=== PATIENT | female | born 1995 | race American Indian/Alaskan Native ===

== ENCOUNTER 2021-08-30 13:27 | Outpatient (CLI) | payer MEDICAID ==
[2021-08-30 16:10] VITALS: BP 126/78
== END 2021-08-30 16:57 | disposition home or self-care (01) ==
LOC: TRG 13:27 → APU 13:28 → TRG 16:57
PROVIDERS: ATTEND Obstetrics & Gynecology
DX: O26.93 Pregnancy related conditions, unspecified, third trimester (principal); Z3A.37 37 weeks gestation of pregnancy
CPT/HCPCS: 59025

== ENCOUNTER 2021-09-04 20:34 | Inpatient (IN) | payer MEDICAID ==
[2021-09-05] MEDS ORDERED: METHYLERGONOVINE MALEATE 0.2 MG/ML VIAL IM PRN (01:46)
[2021-09-05] MEDS ORDERED: fentaNYL 100 MCG/2 ML INJ IV PRN (01:46)
[2021-09-05] MEDS ORDERED: ePHEDrine SULFATE 50 MG/1 ML INJ IV PRN (01:46)
[2021-09-05] MEDS ORDERED: CARBOPROST TROMETHAMINE 250 MCG/1 ML INJ IM PRN (01:46)
[2021-09-05] MEDS ORDERED: TERBUTALINE 1 MG/1 ML INJ SUB-Q PRN (01:46)
--- NOTE | 2021-09-05 01:52 | History and Physical Report ---
History of Present Illness Date of examination: 09/12/21 Date of admission: 09/04/21 20:34 Chief complaint: Induction of labor secondary to growth restriction History of present illness: The patient is a 26-year-old at 38-1/7 weeks gestation who presents to labor and delivery for induction of labor secondary to growth restriction. There is no vaginal bleeding. There is no leaking of fluid. There is good movement. Estimated weight is less than the 1st percentile. Umbilical artery Dopplers are normal. She is followed by maternal- medicine. Induction of labor is recommended at this gestational age to decrease the risk o f stillbirth. The risks, terms, and benefits were explained the patient. She voiced understanding of this. She wished to proceed. Past History Past Medical History: asthma, other (Anxiety, bipolar disorder, rheumatoid arthritis, Crohn's disease, irritable bowel syndrome, alpha thalassemia carrier) Past Surgical History: no surgical history [employer] History: fibroids Family/Genetic History: cancer (Breast cancer, colon cancer, ovarian cancer) Social history: no significant social history - Obstetrical History Expected Date of Delivery: 09/18/21 Actual Gestation: 38 Week(s) 1 Day(s) : 1 Para: 0 Medications and Allergies Allergies Allergy/AdvReac Type Severity Reaction Status Date / Time ketorolac [From Toradol] Allergy Itching Verified 08/30/21 15:38 tramadol Allergy Rash Verified 08/30/21 15:37 NSAIDS (Non-Steroidal AdvReac Bleeding Verified 08/30/21 15:40 Anti-Inflamma Home Medications Medication Instructions Recorded Confirmed Last Taken Type Sertraline [Zoloft] 50 mg PO QDAY 09/05/21 09/05/21 Unknown History Active Meds: Active Medications Acetaminophen (Acetaminophen 325 Mg Tab) 650 mg PO Q4H PRN PRN Reason: Pain, Mild (1-3) Butorphanol Tartrate (Butorphanol 2 Mg/1 Ml Inj) 2 mg IV Q2H PRN PRN Reason: Pain, Moderate(4-6) LABOR PAIN Carboprost Tromethamine (Carboprost Tromethamine 250 Mcg/1 Ml Inj) 250 mcg IM ONCE PRN PRN Reason: Uterine Bleeding Ephedrine Sulfate (Ephedrine Sulfate 50 Mg/1 Ml Inj) 10 mg IV Q2M PRN PRN Reason: Hypotension Fentanyl (Fentanyl 100 Mcg/2 Ml Inj) 100 mcg IV Q2H PRN PRN Reason: Pain,Severe (7-10) LABOR PAIN Lactated Ringer's (Lactated Ringers) 1,000 mls @ 125 mls/hr IV DIRECT NITA Oxytocin/Sodium Chloride (Pitocin/Ns 30 Unit/500ml) 30 units in 500 mls @ 40 mls/hr IV TITR NITA; Protocol Methylergonovine Maleate (Methylergonovine Maleate 0.2 Mg/Ml Vial) 0.2 mg IM ONCE PRN PRN Reason: Uterine Bleeding Misoprostol (Misoprostol 25 Mcg Tab) 25 mcg PO Q4H NITA Stop: 09/05/21 14:01 Terbutaline Sulfate (Terbutaline 1 Mg/1 Ml Inj) 0.25 mg SUB-Q ONCE PRN PRN Reason: Hyperstimulation/Hypertonicity Review of Systems All systems: negative - Vital Signs Vital signs: Vital Signs Pulse BP Pulse Ox 83 121/73 100 09/04/21 22:05 09/04/21 22:05 09/04/21 22:05 Temp Pulse Resp BP Pulse Ox 74 121/73 98 09/05/21 01:50 09/04/21 22:05 09/05/21 01:50 - Physical Exam Breasts: Positive: normal Cardiovascular: Regular rate Lungs: Positive: Normal air movement Abdomen: Positive: normal appearance, normal bowel sounds Genitourinary (Female): Positive: normal external genitalia, normal perenium Vulva: both: normal Vagina: Positive: normal moisture Uterus: Positive: enlarged Adnexa: both: normal Anus/Rectum: Positive: normal perianal skin Extremities: Positive: normal Deep Tendon Reflex Grade: Normal +2 - Obstetrical FHR: category 1 Uterine Contraction Monitor Mode: External Cervical Dilatation: 0 Cervical Effacement Percentage: 0 station: -3 Uterine Contraction Pattern: Irregular Results Result Diagrams: 09/04/21 23:00 All other labs normal. Ultrasound: report reviewed (BPP= 09/30), image reviewed (OB US Limited= SLIUP. Vertex. EFW is 2181 g (<1st %-ile). JAVIER is 7.6 cm.), other (OB Umbilical Artery Dopplers= Normal) Assessment and Plan - Patient Problems (1) 38 weeks gestation of Current Visit: Yes Status: Acute Plan to address problem: care is up-to-date at [facility]. She is GBS negative. (2) growth restriction Current Visit: Yes Status: Acute Plan to address problem: The estimated weight is less than the 1st percentile. The patient is followed by maternal- medicine. Medically indicated induction of labor is indicated at this gestational age to decrease the risk of stillbirth. (3) Encounter for induction of labor Current Visit: Yes Status: Acute Plan to address problem: Ripen cervix with Cytotec 25 mcg orally every 4 hours. Consider addition of Cook's catheter for further cervical ripening. (4) Asthma affecting in third trimester Current Visit: Yes Status: Acute Plan to address problem: Continue albuterol. No Hemabate. (5) Anxiety during in third trimester, antepartum Current Visit: Yes Status: Acute Plan to address problem: Continue home dose of Zoloft 100 mg. (6) Bipolar disease during in third trimester Current Visit: Yes Status: Acute Plan to address problem: Continue home dose of BuSpar 30 mg daily. (7) Maternal Crohn's disease affecting in third trimester Current Visit: Yes Status: Acute Plan to address problem: Stable. (8) Irritable bowel syndrome affecting in third trimester Current Visit: Yes Status: Acute Plan to address problem: Stable. (9) Maternal rheumatoid arthritis complicating Current Visit: Yes Status: Acute Plan to address problem: Stable. (10) Uterine fibroids affecting in third trimester Current Visit: Yes Status: Acute Plan to address problem: The patient cervix is deviated secondary to the fibroid uterus.
[2021-09-05] MEDS ORDERED: OXYTOCIN DRIP 30 UNITS/500 ML BAG IV SCH (02:00)
[2021-09-05] MEDS: miSOPROStol 25 MCG TAB PO SCH ×4 (02:08→13:10)
[2021-09-05] MEDS: LACTATED RINGERS 1,000 ML IV SCH (02:09)
[2021-09-05 02:14] LABS: Hematocrit 33.1 % (30.3-42.9); Hemoglobin 10.8 gm/dl (10.1-14.3); Mean Corpuscular HGB Conc 33 % (30-34); Mean Corpuscular Volume 93 fl (79-97); Platelet Count 230 K/mm3 (140-440); Red Blood Count 3.57 M/mm3 (3.65-5.03); Red Cell Distribution Width 14.2 % (13.2-15.2)
[2021-09-05] MEDS: ACETAMINOPHEN 325 MG TAB PO PRN ×2 (02:30→08:27)
[2021-09-05] MEDS: ONDANSETRON 4 MG/2 ML INJ IV PRN ×3 (02:33→23:35)
--- NOTE | 2021-09-05 05:13 | Ultrasound Report ---
ULTRASOUND OBSTETRIC LIMITED ULTRASOUND BIOPHYSICAL PROFILE INDICATION / CLINICAL INFORMATION: growth restriction. Clinical Gestational Age (GA) in weeks, days: 38, 1 TECHNIQUE: Transabdominal. COMPARISON: None available. FINDINGS: BREATHING MOVEMENT = 2 GROSS BODY MOVEMENT = 2 TONE = 2 QUALITATIVE AMNIOTIC FLUID VOLUME = 2 TOTAL BIOPHYSICAL SCORE = 8/8 HEART RATE (beats per minute): 141 AMNIOTIC FLUID INDEX (cm) = 7.6 (normal = 7-24 cm) PRESENTATION: Cephalic. ADDITIONAL FINDINGS: Estimated age is 33 weeks 4 days by ultrasound. Estimated weight is 2181 g. IMPRESSION: 1. Biophysical Score = 8/8 2. Ultrasound dates lag clinical dates. 3. Estimated weight is 2181 g. 4. Amniotic fluid index lower limits of normal. Signer Name: You Mayes MD Signed: 09/05/2021 5:08 AM Workstation Name: [id number]
--- NOTE | 2021-09-05 05:23 | Ultrasound Report ---
UMBILICAL CORD DOPPLER: - S/D Ratio Average: 2.11 - Waveform: Persistent - Resistive Index (RI) Average: 0.52 - Waveform: Persistent - Pulsitivity Index (PI) Average: Not measured. IMPRESSION: No Doppler evidence of IUGR. Signer Name: You Mayes MD Signed: 09/05/2021 5:19 AM Workstation Name: [id number]
[2021-09-05] MEDS ORDERED: ALBUTEROL 8.5 GM MDI INHALATION IH PRN (08:10)
[2021-09-05] MEDS ORDERED: ALBUTEROL 2.5 MG/3 ML NEBU IH PRN (09:00)
[2021-09-05] MEDS: busPIRone 5 MG TAB PO SCH ×2 (09:50→23:05)
[2021-09-05] MEDS ORDERED: SERTRALINE 100 MG TAB PO SCH (10:00)
[2021-09-05] MEDS ORDERED: busPIRone 10 MG TAB PO SCH (10:00)
--- NOTE | 2021-09-05 12:51 | Event Note ---
Date: 09/05/21
[2021-09-05] MEDS ORDERED: DINOPROSTONE 10 MG VAG SUPP VG SCH (16:10)
[2021-09-05] MEDS: BUTORPHANOL 2 MG/1 ML INJ IV PRN ×3 (16:43→23:27)
--- NOTE | 2021-09-05 19:03 | Event Note ---
Date: 09/05/21 S: Feeling contractions, had pain medication 2 hrs ago O: VE 80/-2, no resting tone between contractions, FHT's 180 with moderate variability- decreased to 150-160's after terbutaline A: Tachysystole at 37.3 weeks P: Terbutaline 0.25 sq x one dose Continue to monitor
[2021-09-06] MEDS ORDERED: diphenhydrAMINE 50 MG/ML VIAL IV STA (01:06)
[2021-09-06] MEDS ORDERED: NALOXONE 0.4 MG/1 ML INJ IV PRN (01:41)
[2021-09-06] MEDS ORDERED: ONDANSETRON 4 MG/2 ML INJ IV PRN (01:41)
[2021-09-06] MEDS ORDERED: PROMETHAZINE 25 MG RECT SUPP PR PRN (01:41)
[2021-09-06] MEDS ORDERED: PROMETHAZINE 25 MG TAB PO PRN (01:41)
--- NOTE | 2021-09-06 01:41 | Anesthesia Consultation ---
Anesthesia Consult and Med Hx Date of service: 09/06/21 - Airway Anesthetic Teeth Evaluation: Good ROM Head & Neck: Adequate Mental/Hyoid Distance: Adequate Mallampati Class: Class II Intubation Access Assessment: Good - Pulmonary Exam CTA: Yes - Cardiac Exam Cardiac Exam: RRR - Pre-Operative Health Status ASA Pre-Surgery Classification: ASA2 Proposed Anesthetic Plan: Epidural - Pulmonary Hx Asthma: Yes (ALBUTEROL INH PRN) COPD: No Hx Pneumonia: No - Cardiovascular System Hx Hypertension: No - Central Nervous System Hx Seizures: No Hx Psychiatric Problems: Yes (ANXIETY; PANIC DISORDER, DEPRESSION, BIPOLAR, ON ZOLOFT & BUSPAR) - Endocrine Hx Renal Disease: No Hx End Stage Renal Disease: No Hx Hypothyroidism: No Hx Hyperthyroidism: No - Hematic Hx Anemia: Yes Hx Sickle Cell Disease: No - Other Systems Hx Alcohol Use: Yes (BEFORE )
--- NOTE | 2021-09-06 01:43 | Progress Note ---
Labor Epidural - Labor Epidural Start Time: 13:22 Stop Time: 13:33 Performed by:: NAA MONTEZ Procedure: Patient is requesting epidural for labor and pain. H&P, labs were reviewed. Patient IDed, all questions and concerns were answered, and consent was signed. Timeout was performed at bedside. Patient in sitting position. Sterile prep and drape was performed. 3ml of 1% lidocaine skin wheal at L[3]- L [4]. 17- gauge Tuohy epidural needle was advanced to loss of resistance with air technique cm. Negative CSF negative blood. Epidural catheter advanced to [15] centimeters. [negative] Aspiration [negative] test dose. Sterile dressing applied. Patient tolerated procedure.
[2021-09-06] MEDS: LACTATED RINGERS 1,000 ML IV SCH (01:51)
[2021-09-06] MEDS ORDERED: fentaNYL-BUPIV 2 MCG/ML-0.125% 200 MCG/100 ML BAG EPIDURAL SCH (02:00)
[2021-09-06] MEDS ORDERED: miSOPROStol 25 MCG TAB PO SCH (02:00)
[2021-09-06] MEDS ORDERED: LIDOCAINE (2%) 20 MG/1 ML VIAL 20 ML MDV INFILTRATI ONE (07:44)
--- NOTE | 2021-09-06 08:44 | Procedure Note ---
OB Delivery Note - Delivery Date of Delivery: 09/06/21 Surgeon: DELTA LI Estimated blood loss: 300cc - Vaginal Delivery presentation: vertex Delivery position: OA Delivery induction: misoprostol Delivery monitor: external FHT, external uterine Route of delivery: Delivery placenta: manual Delivery cord: 3 umbilical vessels Episiotomy: none Delivery laceration: other (vaginal floor laceration and left labial laceration repaired with 2-0 and 3-0 vicryl) Delivery comments: of a viable female 4# 13 oz on 09/06 @ 0742 over vaginal floor laceration. Baby cried initially and put on mothers abdomen, Cord cut at 1 min. NICU nurses were managing the baby and then took her to the warmer. Manual removal of placenta. Lacerations repaired with 2-0 and 3-0 vicryl under local anesthesia. QBL 300cc. Apgars were 3-4-8. - Infant A at 1 minute: 3 at 5 minutes: 4 (10 min 8) Infant Gender: Female
[2021-09-06] MEDS ORDERED: WITCH HAZEL/ GLYCERIN PAD TP PRN (08:45)
[2021-09-06] MEDS ORDERED: MAGNESIUM HYDROXIDE (MOM) ORAL LIQD UDC PO PRN (08:45)
[2021-09-06] MEDS ORDERED: LANOLIN/ZINC/DIMETHICONE (LANSINOH) 7 GM TP PRN (08:45)
[2021-09-06] MEDS ORDERED: IBUPROFEN 800 MG TAB PO SCH (09:00)
[2021-09-06] MEDS ORDERED: HYDROcodone/ACETAMINOPHEN 10-325MG TAB PO STA (10:40)
[2021-09-06] MEDS: HYDROcodone/ACETAMINOPHEN 5-325 MG TAB PO PRN ×2 (10:45→16:28)
[2021-09-07] MEDS: DOCUSATE SODIUM 100 MG CAP PO SCH ×3 (01:41→22:29)
[2021-09-07] MEDS: HYDROcodone/ACETAMINOPHEN 5-325 MG TAB PO PRN ×2 (01:41→07:55)
[2021-09-07 08:20] LABS: Hematocrit 28.6 % (30.3-42.9); Hemoglobin 9.5 gm/dl (10.1-14.3); Mean Corpuscular HGB Conc 33 % (30-34); Mean Corpuscular Volume 91 fl (79-97); Platelet Count 195 K/mm3 (140-440); Red Blood Count 3.13 M/mm3 (3.65-5.03); Red Cell Distribution Width 14.5 % (13.2-15.2)
[2021-09-07] MEDS: PRENATAL VIT27-FE FUMARATE-FOLIC ACID VIT TAB PO SCH (09:49)
--- NOTE | 2021-09-07 12:14 | Consultation ---
History of Present Illness - Reason for Consult Consult date: 09/07/21 Reason for consult: Proctor score - History of Present Psychiatric Illness The patient was seen today. She was admitted for childbirth. She is calm and cooperative. She says it's been a hard . The patient says she suffers from anxiety, depression, bipolar, panic disorder and explosive disorder. She says she hasn't seen a psychiatrist since covid hit because the office closed down. She says she takes zoloft 100, and buspar 30. She says she gets theses meds from her primary doctor. The patient says they appear to be working, she says because things get worse if I don't take them. The patient denies SI/HI. She also denies hallucinations of any kind at present. The patient says "I've had both of those in the past but not in recent months." She says she lives with the child's father and they have plenty of social support with both of their families. She denies illicit drug use outside of occasional THC. She denies alcohol or nicotine. PAST PSYCHIATRIC HISTORY: Diagnoses: Bipolar Disorder, anxiety, depression, panic disorder, explosive disorder Suicide attempts or Self-harm behavior: Yes Prior psychiatric hospitalizations: Denies Substance Abuse history: Denies Previous psychiatric medications tried: zoloft, buspar Outpatient treatment: Yes PAST MEDICAL HISTORY: None reported Family Psychiatric History: None reported or documented SOCIAL HISTORY Marital Status: Single Living Arrangements: with child's father Employment Status: unemployed Access to guns/weapons: Denies Education: 12th grade History of Abuse:Denies Legal History: Denies REVIEW OF SYSTEMS Constitutional: Negative for weight loss ENT: Negative for stridor Respiratory: Negative for cough or hemoptysis All other systems reviewed and are negative MENTAL STATUS EXAMINATION General Appearance and Behavior: Age appropriate, wearing appropriate clothes, cooperative, polite with questioning, good eye contact Cooperation: cooperative Psychomotor Behavior: Psychomotor normal Mood: overwhelmed Affect and affective range: congruent with stated affect Thought Process: Goal directed Thought Content: None Speech: Normal volume, Regular rate and rhythm Suicidal Ideation: Denies Homicidal Ideation: Denies Hallucination: Denies Delusions: None elicited Impulse Control: Limited Insight and Judgment: Limited Memory: Intact Attention: attentive Orientation: Alert and oriented Diagnoses: Bipolar Disorder Treatment Plan Increase home Zoloft 150mg po daily Buspar 15mg po BID Sitter: Defer to primary Medical: per primary Disposition: Do not recommend acute psychiatric inpatient treatment Will sign off. Thanks Case staffed with Dr. Goss Medications and Allergies Allergies Allergy/AdvReac Type Severity Reaction Status Date / Time ketorolac [From Toradol] Allergy Itching Verified 08/30/21 15:38 tramadol Allergy Rash Verified 08/30/21 15:37 NSAIDS (Non-Steroidal AdvReac Bleeding Verified 08/30/21 15:40 Anti-Inflamma Home Medications Medication Instructions Recorded Confirmed Last Taken Type Sertraline [Zoloft] 50 mg PO QDAY 09/05/21 09/05/21 Unknown History Active Meds: Active Medications Acetaminophen (Acetaminophen 325 Mg Tab) 650 mg PO Q4H PRN PRN Reason: Pain MILD(1-3)/Fever >100.5/ESPINO Hydrocodone Bitart/Acetaminophen (Hydrocodone/Acetaminophen 5-325 Mg Tab) 2 each PO Q6H PRN PRN Reason: Pain, Moderate (4-6) Last Admin: 09/07/21 07:55 Dose: 2 each Benzocaine/Menthol (Benzocaine/Menthol 20/0.5% Top [place] 56 Gm) 1 spray TP PRN PRN PRN Reason: Episiotomy Pain Docusate Sodium (Docusate Sodium 100 Mg Cap) 100 mg PO BID [facility] Last Admin: 09/07/21 09:49 Dose: 100 mg Magnesium Hydroxide (Magnesium Hydroxide (Mom) Oral Liqd Udc) 30 ml PO HS PRN PRN Reason: Constipation Multi-Ingredient Ointment (Lanolin/Zinc/Dimethicone (Lansinoh) 7 Gm) 1 applic TP PRN PRN PRN Reason: Sore Nipples Multivitamins/Iron/Calcium ( [id number] Fumarate-Folic Acid Vit Tab) 1 each PO QDAY [facility] Last Admin: 09/07/21 09:49 Dose: 1 each Sodium Chloride (Sodium Chloride 0.9% 10 Ml Flush Syringe) 10 ml IV PRN NR Stop: 09/07/21 23:59 Witch Mary/Glycerin (Witch Mary/ Glycerin Pad) 1 each TP PRN PRN PRN Reason: Hemorrhoid/cleansing/soothing Mental Status Exam - Vital signs Last Vital Signs Temp 98.1 F 09/07/21 07:27 Pulse 58 L 09/07/21 07:27 Resp 16 09/07/21 07:27 BP 118/77 09/07/21 07:27 Pulse Ox 98 09/07/21 08:00 Results Result Diagrams: 09/07/21 08:07 Abnormal lab results 09/07/21 Range/Units 08:07 WBC 16.2 H (4.5-11.0) K/mm3 RBC 3.13 L (3.65-5.03) M/mm3 Hgb 9.5 L (10.1-14.3) gm/dl Hct 28.6 L (30.3-42.9) % All other labs normal.
--- NOTE | 2021-09-07 12:37 | Progress Note ---
Assessment and Plan A: PPD #1 , BABY BOY 1ST DEGREE LACERATION MENTAL HEALTH MANAGEMENT P:CONTINUE PP CARE PER UNIT PROTOCOL PSYCHIATRIC EVALUATION PLAN D/C IN 24 HRS IF STABLE Subjective - Subjective Date of service: 09/07/21 Principal diagnosis: IUGR Patient reports: appetite normal, voiding normally, pain well controlled (JUST MUSCLE DISCOMFORT), ambulating normally Echo: in NICU Objective - Vital Signs Latest vital signs: Vital Signs Temp Pulse Resp BP Pulse Ox Pulse Ox 09/07/21 08:00 98 09/07/21 07:27 98.1 F 58 L 16 118/77 98 09/07/21 02:59 98.2 F 77 18 96/55 98 09/06/21 21:15 98.4 F 68 18 127/77 98 09/06/21 21:00 100 09/06/21 18:29 100 09/06/21 16:39 100 09/06/21 16:30 98.0 F 72 16 144/92 98 09/06/21 14:00 100 Intake and Output 09/06/21 09/07/21 09/07/21 23:59 07:59 15:59 Intake Total 720 240 360 Output Total 1700 Balance -980 240 360 Intake: Oral 480 360 Intake, Free Water 240 240 Output: Urine 1700 Void 1700 Other: Total, Intake Amount 480 120 Total, Output Amount 800 # Voids Void 2 1 - Exam Breasts: Present: normal Cardiovascular: Present: Regular rate Lungs: Present: Clear to auscultation Abdomen: Present: normal appearance, soft Uterus: Present: firm, fundal height below umbilicus Extremities: Present: normal - Labs Labs: Abnormal lab results 09/07/21 Range/Units 08:07 WBC 16.2 H (4.5-11.0) K/mm3 RBC 3.13 L (3.65-5.03) M/mm3 Hgb 9.5 L (10.1-14.3) gm/dl Hct 28.6 L (30.3-42.9) %
--- NOTE | 2021-09-07 12:50 | Discharge Summary ---
Providers - Providers Date of Admission: 09/06/21 08:45 Date of discharge: 09/08/21 Attending physician: DEQUAN CAMPOS 09/07/21 06:20 Consult to Mental Health [CONS] Routine Reason For Exam: Orondo Score of 15 Primary care physician: DEQUAN CAMPOS Hospitalization Reason for admission: induction of labor Delivery: Episiotomy: none Laceration: 1st degree Other procedures: none complications: none Discharge diagnosis: IUP at term delivered baby: female Condition at discharge: Good Disposition: 01 HOME / SELF CARE / HOMELESS Plan - Discharge Medications Prescriptions: Cyclobenzaprine [Flexeril 10 MG TAB] 5 mg PO Q8H PRN #20 tablet PRN Reason: Muscle Spasm Sertraline [Zoloft] 150 mg PO QDAY #45 - Provider Discharge Summary Activity: no sex for 6 weeks, no heavy lifting 4 weeks, no strenuous exercise Diet: routine Instructions: routine Additional instructions: [] Smoking cessation referral if applicable(refer to patient education folder for contact #) [] Refer to [facility]'s [facility] Booklet Call your doctor immediately for: * Fever > 100.5 * Heavy vaginal bleeding ( >1 pad per hour) * Severe persistent headache * Shortness of breath * Reddened, hot, painful area to leg or breast * Drainage or odor from incision. * Keep incision clean and dry at all times and follow doctor's instructions regarding bathing/showering - Follow up plan Follow up: DEQUAN CAMPOS MD [Primary Care Provider] - 6 Weeks
[2021-09-07] MEDS ORDERED: SERTRALINE 50 MG TAB PO SCH (13:00)
[2021-09-07] MEDS ORDERED: busPIRone 10 MG TAB PO SCH (13:00)
[2021-09-07] MEDS: busPIRone 10 MG TAB PO SCH ×2 (15:30→23:35)
[2021-09-07] MEDS: SERTRALINE 50 MG TAB PO SCH (15:30)
[2021-09-07] MEDS: busPIRone 5 MG TAB PO SCH ×2 (15:30→23:35)
[2021-09-07] MEDS: CYCLOBENZAPRINE 10 MG TAB PO PRN ×2 (15:30→23:59)
[2021-09-07] MEDS: SERTRALINE 100 MG TAB PO SCH (15:30)
[2021-09-07] MEDS: BENZOCAINE/MENTHOL 20/0.5% TOP SPRAY 56 GM TP PRN (15:31)
[2021-09-07] MEDS: FERROUS SULFATE 325 MG TAB PO SCH (22:29)
[2021-09-07] MEDS: ACETAMINOPHEN 325 MG TAB PO PRN (23:58)
[2021-09-08 00:38] VITALS: BP 133/88
[2021-09-08] MEDS: HYDROcodone/ACETAMINOPHEN 5-325 MG TAB PO PRN (03:46)
[2021-09-08] MEDS: ACETAMINOPHEN 325 MG TAB PO PRN (05:27)
[2021-09-08] MEDS: PRENATAL VIT27-FE FUMARATE-FOLIC ACID VIT TAB PO SCH (13:00)
[2021-09-08] MEDS: busPIRone 5 MG TAB PO SCH (13:01)
[2021-09-08] MEDS: busPIRone 10 MG TAB PO SCH (13:01)
[2021-09-08] MEDS: DOCUSATE SODIUM 100 MG CAP PO SCH (13:03)
[2021-09-08] MEDS: FERROUS SULFATE 325 MG TAB PO SCH (13:03)
[2021-09-08] MEDS: SERTRALINE 100 MG TAB PO SCH (13:04)
[2021-09-08] MEDS: BENZOCAINE/MENTHOL 20/0.5% TOP SPRAY 56 GM TP PRN (13:05)
[2021-09-08] MEDS: SERTRALINE 50 MG TAB PO SCH (13:05)
== END 2021-09-08 13:12 | disposition home or self-care (01) | DRG 775 ==
LOC: LD 20:34 → UNDOADMIN 20:34 → LD 09-06 08:45 → OB 09-06 11:32 → LD 09-06 11:32
PROVIDERS: ADMIT Obstetrics & Gynecology; ATTEND Obstetrics & Gynecology
PROC: 10E0XZZ Delivery of Products of Conception, External Approach (ICD-10-PCS; principal; 2021-09-06)
PROC: 3E0R3BZ Introduction of Anesthetic Agent into Spinal Canal, Percutaneous Approach (ICD-10-PCS; 2021-09-06)
PROC: 00HU33Z Insertion of Infusion Device into Spinal Canal, Percutaneous Approach (ICD-10-PCS; 2021-09-06)
PROC: 3E0P7VZ Introduction of Hormone into Female Reproductive, Via Natural or Artificial Opening (ICD-10-PCS; 2021-09-06)
PROC: 0HQ9XZZ Repair Perineum Skin, External Approach (ICD-10-PCS; 2021-09-06)
DX: O36.5930 Maternal care for other known or suspected poor fetal growth, third trimester, not applicable or unspecified (principal); Z3A.38 38 weeks gestation of pregnancy; Z37.0 Single live birth; M06.9 Rheumatoid arthritis, unspecified; Z20.822 Contact with and (suspected) exposure to COVID-19; O99.892 Other specified diseases and conditions complicating childbirth; O99.62 Diseases of the digestive system complicating childbirth; K50.90 Crohn's disease, unspecified, without complications; O34.10 Maternal care for benign tumor of corpus uteri, unspecified trimester; D25.9 Leiomyoma of uterus, unspecified; O99.344 Other mental disorders complicating childbirth; F31.9 Bipolar disorder, unspecified; F41.9 Anxiety disorder, unspecified; O99.52 Diseases of the respiratory system complicating childbirth; O62.9 Abnormality of forces of labor, unspecified; J45.909 Unspecified asthma, uncomplicated; O70.0 First degree perineal laceration during delivery; Z80.3 Family history of malignant neoplasm of breast; Z80.0 Family history of malignant neoplasm of digestive organs; Z80.41 Family history of malignant neoplasm of ovary
CPT/HCPCS: 36415; 76816; 76819; 76820; 85027; 86850; 86900; 86901; 96360; 96361; 96374; G0378; J3490; J0595; J2405; J3105; J7120; U0003